=== PATIENT | female | born 1990 | race African-American/Black ===

== ENCOUNTER 2021-09-02 18:25 | Emergency (ER) | payer MEDICAID ==
[~2021-09-02] VITALS: Ht 165.1 cm; Wt 202.0 kg
[2021-09-02] MEDS ORDERED: IBUPROFEN 400MG TABLET PO ONE (21:15)
[2021-09-02] MEDS ORDERED: ACETAMINOPHEN 325MG TABLET PO ONE (21:15)
[2021-09-03] VITALS: BP 132/74
[2021-09-03] MEDS ORDERED: ACET-2708 MT (00:02)
[2021-09-03] MEDS ORDERED: IBUP-2028 MT (00:03)
== END 2021-09-03 00:23 | disposition home or self-care (01) ==
LOC: ER 18:25
DX: S30.1XXA Contusion of abdominal wall, initial encounter (principal); R59.0 Localized enlarged lymph nodes; V43.52XA Car driver injured in collision with other type car in traffic accident, initial encounter; Y93.89 Activity, other specified; Y92.488 Other paved roadways as the place of occurrence of the external cause
CPT/HCPCS: 76705; 76857; 99284